=== PATIENT | male | born 1985 | race Two or more races ===

== ENCOUNTER → 2024-08-28 | Outpatient (CLI) | payer MEDICAID, SELFPAY | END | disposition home or self-care (01) | LOC: SWHD 13:04 | PROVIDERS: PCP Family Medicine; Referring Provider Family Medicine; Visit Provider Student in an Organized Health Care Education/Training Program | DX: I87.332 Chronic venous hypertension (idiopathic) with ulcer and inflammation of left lower extremity (principal); L97.221 Non-pressure chronic ulcer of left calf limited to breakdown of skin; E66.9 Obesity, unspecified; R56.9 Unspecified convulsions; R60.0 Localized edema | CPT/HCPCS: 99212; G0463 ==

== ENCOUNTER → 2024-09-11 | Outpatient (CLI) | payer MEDICAID, SELFPAY | END | disposition home or self-care (01) | LOC: SWHD 13:43 | PROVIDERS: PCP Family Medicine; Referring Provider Family Medicine; Visit Provider Surgery | DX: I87.332 Chronic venous hypertension (idiopathic) with ulcer and inflammation of left lower extremity (principal); L97.221 Non-pressure chronic ulcer of left calf limited to breakdown of skin; R60.0 Localized edema; E66.9 Obesity, unspecified; R56.9 Unspecified convulsions; L85.3 Xerosis cutis | CPT/HCPCS: 99212; A9270; G0463 ==

== ENCOUNTER → 2024-10-02 | Outpatient (CLI) | payer MEDICAID, SELFPAY | END | disposition home or self-care (01) | PROVIDERS: PCP Family Medicine; Referring Provider Family Medicine; Visit Provider Student in an Organized Health Care Education/Training Program | DX: I87.332 Chronic venous hypertension (idiopathic) with ulcer and inflammation of left lower extremity (principal); L97.221 Non-pressure chronic ulcer of left calf limited to breakdown of skin; R60.0 Localized edema; E66.9 Obesity, unspecified; R56.9 Unspecified convulsions; L85.3 Xerosis cutis | CPT/HCPCS: 99212; G0463 ==

== ENCOUNTER 2024-10-09 15:47 | Emergency (ER) | payer MEDICAID, SELFPAY ==
[2024-10-09 15:58] VITALS: BP 125/86; PULSE 103; RESP 19; TEMP 37.2; O2SAT 96
--- NOTE | 2024-10-09 16:40 | PD.EDRME ---
Rapid Medical Screening Exam RME Arrival date/time: 10/09/24 15:47 39-year-old male with a history of seizures presents to the emergency room with a chief complaint of left groin pain and tenderness. Mother at bedside states they were sent over by ultrasound at her MOB department due to a positive DVT. I have greeted and performed a focused initial assessment of this patient. A comprehensive ED assessment and evaluation of the patient, analysis of all test results, and completion of the medical decision making process will be conducted by additional ED providers. Chief Complaint: Abdominal Pain Vital signs: Vital Signs Temperature 98.9 F 10/09/24 15:58 Pulse Rate 103 H 10/09/24 15:58 Respiratory Rate 19 10/09/24 15:58 Blood Pressure 125/86 H 10/09/24 15:58 Pulse Oximetry (%) 96 10/09/24 15:58 Oxygen Delivery Method Room Air 10/09/24 15:58 Vital signs reviewed by provider: Yes
[2024-10-09 17:11] LABS: Basophils # (Auto) 0.1 Thou/mm3 (0.0-0.2); Basophils % (Auto) 1 % (0-2.5); Eosinophils # (Auto) 0.4 Thou/mm3 (0.0-0.5); Eosinophils % (Auto) 3 % (0-10); Hematocrit 42.2 % (41.0-53.0); Hemoglobin 14.7 g/dL (13.5-16.0); Immature Granulocytes % (Auto) 1 % (0-0); Immature Granulocytes Auto 0.08 Thou/mm3 (0.00-0.00); Lymphocytes # (Auto) 3.3 Thou/mm3 (1.0-4.8); Lymphocytes % (Auto) 27 % (10-50); Mean Corpuscular HGB Conc 34.8 g/dl (31.0-37.0); Mean Corpuscular Hemoglobin 31.5 pg (25.0-35.0); Mean Corpuscular Volume 90 fL (80-100); Monocytes # (Auto) 1.3 Thou/mm3 (0.0-0.8); Monocytes % (Auto) 10 % (0-12); Neutrophils # (Auto) 7.4 Thou/mm3 (1.8-7.7); Neutrophils % (Auto) 59 % (37-80); Nucleated Red Blood Cell % 0 /100 WBC (0); Platelet Count 339 Thou/mm3 (140-440); RDW Standard Deviation 42.2 fL (35.1-43.9); Red Blood Count 4.67 Miln/mm3 (4.50-5.90); White Blood Count 12.5 Thou/mm3 (3.8-10.6)
[2024-10-09 17:29] LABS: D-Dimer < 250 ng/mL (<600)
[2024-10-09 17:30] LABS: Alanine Aminotransferase 17 U/L (10-49); Albumin, Serum 4.8 gm/dL (3.5-5.0); Albumin/Globulin Ratio 1.6 (1.2-2.2); Alkaline Phosphatase 174 U/L (46-116); Anion Gap 10 (7-16); Aspartate Amino Transferase 14 U/L (0-34); BUN/Creatinine Ratio 13 Ratio (12-20); Bilirubin,Total 0.3 mg/dL (0.3-1.2); Blood Urea Nitrogen 10 mg/dL (9-23); Calcium 9.4 mg/dL (8.3-10.6); Calcium (Corrected) 9.4 mg/dL (8.5-10.1); Carbon Dioxide 22.3 mMol/L (20.0-31.0); Chloride 110 mMol/L (98-107); Creatinine (Component) 0.8 mg/dL (0.6-1.3); Glucose 114 mg/dL (74-106); Osmolality,Calculated 283 (275-295); Potassium 3.6 mMol/L (3.4-5.1); Sodium 142 mMol/L (136-145); Total Protein 7.8 gm/dL (5.7-8.2); eGFR > 60 See Note
[2024-10-09 17:35] LABS: INR 1.1 (0.9-1.3); Prothrombin Time 11.7 Seconds (9.0-12.2)
--- NOTE | 2024-10-09 19:40 | PD.EDLOWEX ---
Lower Extremity Injury RME/HPI General Chief Complaint: Abdominal Pain Stated Complaint: SENT BY MOB FOR US FOLLOW UP Time Seen by Provider: 10/09/24 19:36 Arrival date/time: 10/09/24 15:47 39 year old male with past medical of DVT present to emergency room with c/o of lower left leg pain worsen the past 2 days. pt had outpatient US and found it nonocclusive thrombus. advised to come to ED for evaluation. LOCATION: leg SEVERITY: Symptoms are described as being severe with limitations on activities of daily living QUALITY: Symptoms are described as being dull or achy CONTEXT: ongoing, worsen the past 2 days DURATION/TIMING: The symptoms started approximately ongoing, worsen the past 2 days ASSOCIATED SYMPTOMS: The patient is unable to identify any other associated symptoms. MODIFYING FACTORS: The patient is unable to identify any alleviating or aggravating symptoms. PERTINENT ROS: no fevers, no headache, no neck or chest pain, no unexplained nausea or vomiting, no focal neurological deficits no chest pain/shortness of breath no dizziness, syncope, no trauma or recent travel/surgery REVIEW OF SYSTEMS: See History of Present Illness - with the exception of those mentioned in the history of present illness, all other systems reviewed and reported as negative GENERAL: In general the patient is awake, interactive, in an emergency department gurney. HEAD/EYES/EARS/NOSE/THROAT: normo-cephalic, atraumatic, mucus membranes are moist, anicteric, palpebral conjunctiva is pink, trachea is midline. CARDIOVASCULAR: regular rate and regular rhythm, no murmurs, heart sounds are not distant, strong pulses in all four extremities that are equal and symmetric bilateral upper and lower extremities, normal capillary refill. CHEST/PULMONARY: normal chest rise and fall, good air movement, clear to auscultation bilaterally, normal inspiratory to expiratory ratios without evidence of respiratory distress. NECK: No midline/Paraspinal tenderness, no step off ROM/Strenght intact No Kernig and bruzinski sign. No trauma ABDOMEN: soft, not tender, no masses appreciated BACK: normal range of motion without pain. NEUROLOGICAL: cranio-facial features are symmetric, moves all four extremities equally without obvious limitations or weakness. EXTREMITY: + left lower leg pain,no tenderness to palpation over the long bones or large joints of the bilateral upper extremities, no joint swelling, no joint erythema, no signs of trauma, no unilateral leg swelling and no peripheral edema. SKIN: warm, dry, well-perfused, no jaundice, no rash, no telangiectasias or petechia. PSYCH: calm, cooperative, no evidence of psychosis or agitation RME / HPI RME / HPI Narrative: 10/09/24 15:47 39-year-old male with a history of seizures presents to the emergency room with a chief complaint of left groin pain and tenderness. Mother at bedside states they were sent over by ultrasound at her MOB department due to a positive DVT. I have greeted and performed a focused initial assessment of this patient. A comprehensive ED assessment and evaluation of the patient, analysis of all test results, and completion of the medical decision making process will be conducted by additional ED providers. Related Data Home Medications ?Medication ?Instructions ?Recorded ?Confirmed Phenytoin Sodium Extended * 200 mg PO BID 3 days ##0 12/12/09 (DILANTIN *) topiramate 100 mg tablet (Topamax) 100 mg PO BID ##0 12/12/09 levetiracetam 500 mg tablet 1,000 mg PO BID ##0 09/12/10 (Keppra) Phenytoin Sodium Extended * 200 mg PO BID #0 caps 01/16/14 10/27/23 (DILANTIN *) levetiracetam 500 mg tablet 1,000 mg PO BID #0 tabs 01/16/14 10/27/23 (Keppra) topiramate 100 mg tablet (Topamax) 100 mg PO BID #0 tabs 01/16/14 10/27/23 amoxicillin 500 mg capsule 500 mg PO TID #0 caps 01/18/14 prednisone 20 mg tablet 20 mg PO QAM #0 tabs 01/18/14 ketoconazole 2 % topical cream See Rx Instructions .Route .COMPLEX 10/27/23 10/27/23 Previous Rx's ?Medication ?Instructions ?Recorded acetaminophen 500 mg tablet 500 mg PO Q6HR PRN PAIN #30 tabs 08/27/14 (Tylenol Extra Strength) rivaroxaban 15 mg tablet (Xarelto) 15 mg PO QDAY #21 tabs 10/09/24 Allergies Allergy/AdvReac Type Severity Reaction Status Date / Time NKA* Allergy Uncoded 10/09/24 17:45 Course Course Course Narrative: Patient presenting with leg pain for 2 days .? Presentation concerning for DVT.? Also considered cellulitis, abscess, lymphedema, however these were not consistent with presentation.? Unable to rule out patient with Wells Score.? D-dimer was negative Duplex ultrasound was obtained showingIt with nonocclusive thrombus in the distal left superficial femoral vein Patient will continue with xarelto 15mg daily for 21 days Patient will follow up with PCP in-5 days to discuss termite inspector anti-coagulation.? Patient did not meet indications for inpatient management including massive DVT, signs/symptoms of pulmonary embolism (PE), high risk of bleeding with anticoagulant therapy, or comorbid conditions.?? I have instructed the patient to return to the ER at any time if there are any new or worsening symptoms including uncontrolled pain, fever, shortness of breath, chest pain.? The patient expressed understanding of and agreement with this plan.? Opportunity was given for questions prior to discharge and all stated questions were answered to the patient's satisfaction.? Home care instructions provided.? Patient remained hemodynamically stable through ED course and was discharged home without event.? Plan:?? Discharge from ED Prescribed xarelto 15mg daily #21 to be managed by PCP.?? Pt to f/up w/ PCP in 2 days to discuss fci anticoagulation.? Advised patient on supportive measures including regular exercise, avoid sitting or lying in bed for long periods of time without moving your legs. women, particularly those over the age of?, should consider the risks and benefits of taking estrogen medicines, including control pills, avoid tobacco.?? Quality Measures none Orders Category Date Time Status CBC Stat Lab 10/09/24 16:49 Completed CMP [Comprehensive Metabolic Panel] Stat Lab 10/09/24 16:49 Completed D-Dimer Stat Lab 10/09/24 16:49 Completed PT [Prothrombin Time with INR] Stat Lab 10/09/24 16:49 Completed PTT [Partial Thromboplastin Time] Stat Lab 10/09/24 16:49 Completed Rivaroxaban [Xarelto] Med 10/09/24 19:45 Ordered 15 mg PO X1 Vital Signs Vital signs: Vital Signs Temperature 98.9 F 10/09/24 15:58 Pulse Rate 103 H 10/09/24 15:58 Respiratory Rate 19 10/09/24 15:58 Blood Pressure 125/86 H 10/09/24 15:58 Pulse Oximetry (%) 96 10/09/24 15:58 Oxygen Delivery Method Room Air 10/09/24 15:58 Extremity Injury, Lower Patient data External records reviewed:: [facility] previous records Clinical information provided by:: patient and parent Social determinants that could affect healthcare access:: none Patient has the following chronic illnesses:: as stated in chart How is presenting disease/condition affected by chronic disease/condition?: no chronic disease Evaluation data The following diagnostics were reviewed and interpreted by me:: lab results, radiology exam(s) and other (specify) Lab and/or radiology exams considered but not ordered:: non Interpretation Summary: us; IMPRESSION: Findings consistent with nonocclusive thrombus in the distal left superficial femoral vein, age indeterminate, clinical correlation advised cbc/cmp wnl ddimer negative Medications / Prescriptions Medications or Prescriptions considered but not ordered:: none Medication administrations:: Medication Administration History Rivaroxaban (Rivaroxaban 10 Mg Tablet) 15 mg PO X1 GREGG Stop: 10/30/24 19:44 as stated above Consultations Consultation(s) initiated? (list below): No Diagnosis Most likely diagnosis given after review of the tests above:: nonocclusive thrombus in the distal left superficial femoral vein Admission Indicated Admission indicated?: not indicated Admission Request Was there a request for admission?: No Disposition Plan Disposition Plan: Discharge Discharge Attestation Discharge Attestation: The patient and all family members were given an opportunity to ask questions and understood the discharge instructions. Discharge instructions specifically effects, indications for sooner follow up or return to the emergency department, and the expected course of current diagnosis. Patient condition: Stable Discharge Plan Plan Patient Disposition: HOME (Self Care) Health Concerns: FOllow up with PCP as directed Return to ED if symptoms worsen Prescriptions/Referrals Prescriptions/Med Rec: New Xarelto 15 mg tablet 15 mg PO QDAY Qty: 21 0RF Rx Instructions: must administer with evening meal No Action topiramate [Topamax] 100 MG tablet 100 mg PO BID Qty: 0 Patient Comments: LAST DOSE 12/11/09 Phenytoin Sodium Extended * (DILANTIN *) 100 MG capsule 200 mg PO BID 3 Days Qty: 0 Patient Comments: FOR SEIZURE CONTROL levetiracetam [Keppra] 500 MG tablet 1,000 mg PO BID Qty: 0 topiramate [Topamax] 100 MG tablet 100 mg PO BID Qty: 0 levetiracetam [Keppra] 500 MG tablet 1,000 mg PO BID Qty: 0 Phenytoin Sodium Extended * (DILANTIN *) 100 MG capsule 200 mg PO BID Qty: 0 Patient Comments: FOR SEIZURE CONTROL amoxicillin 500 MG capsule 500 mg PO TID Qty: 0 prednisone 20 MG tablet 20 mg PO QAM Qty: 0 acetaminophen [Tylenol Extra Strength] 500 MG tablet 500 mg PO Q6HR PRN (Reason: PAIN) Qty: 30 0RF ketoconazole 2 % Cream See Rx Instructions .ROUTE .COMPLEX Hold Instructions: Resume on 11/02/23. until you see pcp Rx Instructions: topical cream for left lower extremity Referrals: Jet Cummins MD [Primary Care Provider] - In 1 week Problem List Clinical Impression: Non-occlusive thrombus Patient/Caregiver Discharge Instructions Education Materials: DVT Dc Print Language: Kinyarwanda Stand Alone Forms: Courtney Award Info., Patient Portal Info Letter
== END 2024-10-09 20:33 | disposition home or self-care (01) ==
PROVIDERS: Nurse Practitioner Family; Emergency Provider Emergency Medicine; PCP Family Medicine
DX: I82.412 Acute embolism and thrombosis of left femoral vein (principal)
CPT/HCPCS: 36415; 80053; 85025; 85379; 85610; 85730; 99283; A9270

== ENCOUNTER → 2024-10-09 | Outpatient (CLI) | payer MEDICAID, SELFPAY ==
--- NOTE | 2024-10-09 14:49 | XR_ITS ---
Examination: Duplex scan of the lower extremity, unilateral left complete Date and time of exam: October 09, 2024 1504 hours Comparison October 26, 2023 INDICATIONS: Left lower leg swelling and pain one year, nonocclusive thrombus in the left common femoral vein on venous Doppler October 26, 2023 Technique: Duplex scan of the extremity veins using B-mode/grayscale imaging and Doppler spectral analysis and color flow Attention is directed to internal echogenicity, compression and augmentation involving these veins, color flow assessment, spectral analysis Findings: Findings consistent with nonocclusive thrombus in the distal left superficial femoral vein, age indeterminate, clinical correlation advised Common femoral popliteal perineal posterior tibial veins are open IMPRESSION: Findings consistent with nonocclusive thrombus in the distal left superficial femoral vein, age indeterminate, clinical correlation advised
== END | disposition home or self-care (01) ==
LOC: SWHO 14:32
PROVIDERS: PCP Family Medicine; Referring Provider Surgery; Visit Provider Radiology Diagnostic Radiology
DX: I87.312 Chronic venous hypertension (idiopathic) with ulcer of left lower extremity (principal)
CPT/HCPCS: 93971